=== PATIENT | male | born 1975 | race Two or more races ===

== ENCOUNTER 2019-06-20 14:11 | Outpatient (CLI) | payer OTHER | END 2019-06-20 14:16 | disposition home or self-care (01) | LOC: LAB 14:11 | DX: G93.5 Compression of brain (principal) ==

== ENCOUNTER 2019-06-21 10:57 | Outpatient (CLI) | payer OTHER | END 2019-06-21 11:30 | disposition home or self-care (01) | LOC: MRI 10:57 | DX: G93.89 Other specified disorders of brain (principal) | CPT/HCPCS: 70553 ==